=== PATIENT | female | born 1960 | race Caucasian/White ===

== ENCOUNTER 2018-05-01 14:46 | Outpatient (CLI) | payer BC ==
[2018-05-01] MEDS ORDERED: Lidocaine 2% Jelly 5 ML TUBE ONE (15:00)
--- NOTE | 2018-05-01 23:29 | HP ---
DATE OF SERVICE: 05/01/2018 HISTORY OF PRESENT ILLNESS: Ms. Yara Navarro is a very pleasant 58-year-old who presents to the [facility] for evaluation of coccygeal pressure ulceration. The patient states that the ulceration b bhavik in mid February of this year. The patient states that she was immobilized secondary to a lupus exacerbation. The patient states she has returned home after vacation at the end of January of this year. The patient states that her assisted her with dressing changes consisting of cleansing the wound and applying an antifungal preparation made from essential oils. The patient states that this preparation is made by a friend. She also states that she applied a preparation of lavender to the wound for relief of pain. The patient's states that the wound was also dressed with "a b ig Band-Aid." The patient states that she was seen by Dr. Holden last week and at this time referre d to the Wound Center for further evaluation and treatment. PAST MEDICAL HISTORY: Lupus. PAST SURGICAL HISTORY: [place] teeth extraction. MEDICATIONS: 1. Vitamin B12. 2. Probiotics. 3. Alpha lipoic acid. ALLERGIES: No known diagnosed allergies. SOCIAL HISTORY: Significant for tobacco use of 4 cigarettes per day for 8 years. The patient states she has not smoked in approximately 10 years. The patient denies any history of ETOH use. FAMILY HISTORY: Negative for diabetes mellitus or coronary artery disease. PHYSICAL EXAMINATION: VITAL SIGNS: Temperature 97.6, pulse 135, respirations 17, blood pressure 92/40. GENERAL: A 58-year-old female sitting on wheelchair in examination room, in mild distress. HEENT: Normocephalic, atraumatic. NECK: No nuchal rigidity. CHEST: Clear to auscultation. CARDIAC: Regular rate and rhythm. ABDOMEN: Soft. EXTREMITIES: No clubbing or cyanosis. BACK: Coccygeal pressure ulceration is present which measures approximately 1.0 x 2.0 cm. Granulati on tissue is visible within the wound margins. Nonviable tissue present within the wound margins was debrided with an excisional full-thickness debridement. No purulent drainage is associated with the wound. No cellulitis of the coccygeal region is appreciated. No maceration of the skin of the selina wound is noted. NEUROLOGIC: Grossly nonfocal. ASSESSMENT AND PLAN: 1. Coccygeal pressure ulceration as described above. Dressing changes of Medihoney gauze and Mepile x border will be initiated today. These dressing changes are to be performed on a daily basis or alt ernatively every other day after cleansing and irrigation with the assistance of the patient's marley baig. No antibiotics will be prescribed today based upon the appearance of the wound. I will see Ms. Christopher camp again in two weeks. The patient and her understand and are in agreement with the [facility] treatment plan. 2. Lupus.
== END 2018-05-01 14:47 | disposition home or self-care (01) ==
LOC: WCC 14:46
PROVIDERS: ATTEND Internal Medicine
DX: L89.159 Pressure ulcer of sacral region, unspecified stage (principal); M32.9 Systemic lupus erythematosus, unspecified

== ENCOUNTER 2018-05-22 15:16 | Outpatient (CLI) | payer BC ==
[~2018-05-22 15:16] MED LIST: Lidocaine 4% Topical Sol 50 ML BOT ONE; Sodium Chloride 0.9% 15 ML NEB ONE
--- NOTE | 2018-05-22 17:15 | PRG ---
DATE OF SERVICE: 05/22/2018 HISTORY: Ms. Yara Navarro is a very pleasant 58-year-old, who presents to the Wound Center for evaluation of a coccygeal pressure ulceration. Since the patient's last visit to the Wound Center, Ms. Navarro states she was admitted to [facility] where negative pressure therapy was initiated for her wound. The patient has been receiving dressing changes with the assistance of home health since her discharge from [facility]. The patient states that imaging of the pelvis has been obtained. She states that the records of her imaging have been transmitted to Dr. Holden. PHYSICAL EXAMINATION: VITAL SIGNS: Temperature 97.9, pulse 94, respirations 18, and blood pressure 110/55. BACK: A coccygeal pressure ulceration is present, which measures approximately 2.0 x 1.4 cm. The dimensions of the wound at the time of the patient's visit on 05/01/2018, were approximately 1.0 x 2.0 cm. Granulation tissue is visible within the wound margins. Nonviable tissue present within the wound margins was debrided with an excisional full-thickness debridement. No purulent drainage is associated with the wound. No cellulitis of the coccygeal region is appreciated. No maceration of the skin of the periwound is noted. ASSESSMENT AND PLAN: 1. Coccygeal pressure ulceration as described above. Negative pressure therapy will be continued with dressing changes of the wound VAC three times per week with the assistance of home health. I will see Ms. Navarro again in 2 weeks. 2. Lupus. Job ID: [id number]
== END 2018-05-22 15:17 | disposition home or self-care (01) ==
LOC: WCC 15:16
PROVIDERS: ATTEND Family Medicine
DX: L89.159 Pressure ulcer of sacral region, unspecified stage (principal); M32.9 Systemic lupus erythematosus, unspecified
CPT/HCPCS: A4218; J2001

== ENCOUNTER 2018-06-05 15:14 | Outpatient (CLI) | payer BC ==
--- NOTE | 2018-06-06 09:25 | PRG ---
DATE OF SERVICE: 06/06/2018 HISTORY: Ms. Yara Navarro is a very pleasant 58-year-old, who presents to the Wound Center for evaluation of a coccygeal pressure ulceration. The patient continues to receive negative pressure therapy with dressing changes of the wound VAC with the assistance of home health. The patient has no complaints today. She denies any fever or chills. OBJECTIVE: VITAL SIGNS: Temperature 98.4, pulse 116, respirations 20, blood pressure 112/63. BACK: A coccygeal pressure ulceration is present which measures approximately 1.2 x 1.0 cm. The dimensions of the wound at the time of the patient's visit on 05/22/2018, were approximately 2.0 x 1.4 cm. Granulation tissue is present within the wound margins. No purulent drainage is associated with the wound. No erythema of the skin surrounding the wound is present. No maceration of the skin of the periwound is noted. A tunnel at the 12 o'clock position is present and is approximately 3.4 cm in length. ASSESSMENT AND PLAN: 1. Coccygeal pressure ulceration as described above. Negative pressure therapy will be continued with dressing changes of the wound VAC 3 times per week with the assistance of home health. Arrangements will also be made for MRI of the pelvis with and without contrast to look for findings suggestive of osteomyelitis. I will see Ms. Navarro again after MRI of the pelvis with and without contrast has been obtained. The patient understands and is in agreement with the preceding treatment plan. 2. Lupus. Job ID: [id number]
== END 2018-06-05 15:15 | disposition home or self-care (01) ==
LOC: WCC 15:14
PROVIDERS: ATTEND Family Medicine
DX: L89.159 Pressure ulcer of sacral region, unspecified stage (principal); M32.9 Systemic lupus erythematosus, unspecified
CPT/HCPCS: A4218; J2001

== ENCOUNTER 2018-06-19 16:00 | Emergency (ER) | payer BC ==
--- NOTE | 2018-06-19 17:26 | RAD ---
UPRIGHT PORTABLE CHEST ONE VIEW: HISTORY: A 58-year-old female with a history of shortness of breath. COMPARISON: 03/02/2010 FINDINGS: Linear parenchymal changes horizontally noted over the right and left mid lung zones. Minimal increa sed markings bilaterally. Heart size is within normal limits. No confluent pneumonia, overt edema, or pleural effusion. IMPRESSION: Horizontal linear and parenchymal changes in the mid lung zones, possibly chronic change or subsegmen mariano atelectasis. Somewhat less than optimal inspiration. No confluent pneumonia or overt edema. Co ntinue short-term followup. POS: [facility]
[2018-06-19] MEDS ORDERED: Ondansetron PF 4 MG/2 ML Vial ONE (17:48)
[2018-06-19] MEDS ORDERED: Morphine 4 MG/ML VIAL ONE (17:48)
[2018-06-19 17:50] LABS: Hemoglobin 9.6 g/dL (12.0-16.0); Mean Corpuscular HGB CONC 32.8 g/dL (32.0-36.0); Mean Corpuscular Hemoglobin 32.5 pg (27.0-31.0); Mean Corpuscular Volume 99.3 fL (78.0-98.0); Mean Platelet Volume 10.6 fL (7.4-10.4); Platelet Count 131 thou/uL (130-400); RBC Distribution Width 14.6 % (11.5-14.5); Red Blood Cell (RBC) Count 2.95 mill/uL (4.20-5.40); White Blood Cell (WBC) Count 4.1 thou/uL (4.8-10.8)
[2018-06-19 18:04] LABS: ALT (SGPT) 18 U/L (8-55); AST (SGOT) 40 U/L (5-34); Albumin 2.8 g/dL (3.5-5.0); Alkaline Phosphatase 67 U/L (40-150); Anion Gap 14 mmol/L (10-20); BUN (Urea Nitrogen) 17 mg/dL (9.8-20.1); Bilirubin, Total 0.4 mg/dL (0.2-1.2); Calc. Creatinine Clearance 0 mL/min (70-130); Calcium 8.4 mg/dL (7.8-10.44); Carbon Dioxide 22 mmol/L (22-29); Chloride 101 mmol/L (98-107); Estimated GFR-MDRD 82; Glucose 85 mg/dL (70-105); Lipase 11 U/L (8-78); Potassium 4.2 mmol/L (3.5-5.1); Protein, Total 6.8 g/dL (6.0-8.3); Sodium 133 mmol/L (136-145)
[2018-06-19 18:16] LABS: Anisocytosis SLIGHT = 6-15 cells (100X) (0-5/hpf); Band 8 % (5-11); Lymphocytes 12 % (21-51); MDiff Complete? YES; Monocytes 3 % (0-10); Neutrophil 76 % (42-75); Ovalocytes SLIGHT = 2-5 cells (100X) (0-1/hpf); PLT Morphology Comment Appears Adequate; Polychromasia SLIGHT = 2-3 cells (100X) (0-2/hpf); Tear Drops SLIGHT = 2-5 cells (100X) (0-1/hpf)
--- NOTE | 2018-06-19 18:26 | CT ---
CT ABDOMEN AND PELVIS WITH IV CONTRAST: 06/19/2018 HISTORY: Right lower quadrant abdominal pain. COMPARISON: None available. FINDINGS: There is bibasilar atelectasis, greater at the right lung base. There is mild elevation of the right hemidiaphragm. The heart is mildly enlarged. Mild vascular calcifications are seen in the abdominal aorta, but the abdominal aorta is normal in ca liber. There is minimal nonspecific periportal edema. A 3.1 cm hypodense mass is seen at the posterior aspe ct, posterior segment, right hepatic lobe, with discontinuous peripheral nodular enhancement, and thi s likely represents a hemangioma. The liver is enlarged in craniocaudal dimensions, measuring 19.3 c m. The spleen, pancreas, bilateral adrenal glands, kidneys, and urinary bladder demonstrate a normal CT appearance. The uterus is small in size. There are several mildly enlarged lymph nodes in the renetta hepatis, with the largest lymph node seen just anterior to the IVC, at the level of the pancreatic head, measuring 1.2 cm in short axis dimensi on. A few additional aortocaval lymph nodes are seen, which are mildly increased in number. There is a tubular area of gas density in the right lower quadrant, which is thought to be the append ix, which is normal in caliber, without CT findings to suggest appendicitis. There are a few gas densities seen within the central mesentery and just to the left of midline, in t he upper pelvis, which are thought to be related to gas densities within loops of bowel. No free fluid or fluid collection is seen in the abdomen or pelvis. IMPRESSION: 1. Lymphadenopathy, predominantly in a periportal location, but also in an aortocaval location, of u ncertain etiology. Lymphoma cannot be entirely excluded. 2. Probable hemangioma, posterior segment, right hepatic lobe. There is mild nonspecific heterogene ity of the liver, which may be related to areas of fatty infiltration. The liver is enlarged in cran iocaudal dimensions, measuring 19.[address] evidence of appendicitis. 4. Prominent bibasilar atelectasis with a very tiny right pleural effusion. POS: [facility]
[2018-06-19] MEDS ORDERED: Morphine 10 MG/ML VIAL ONE (20:45)
[2018-06-19] MEDS ORDERED: Acetaminophen 325 MG TAB ONE (20:46)
[2018-06-19] MEDS ORDERED: metroNIDAZOLE 250 MG TAB ONE (20:46)
[2018-06-19 20:48] LABS: Bilirubin Negative (Negative); Blood, Urine Negative (Negative); Clarity CLEAR (Clear); Glucose, Urine (Dipstick) Negative (Negative); Leukocyte Negative (Negative); Nitrite Negative (Negative); Protein, Urine (Dipstick) Negative (Neg-Trace); Specific Gravity, Urine 1.025 (1.002-1.036); Urobilinogen 0.2 mg/dL (0.2-1.0)
[2018-06-19] MEDS ORDERED: Doxycycline 100 MG CAP PO SCH (21:00)
== END 2018-06-19 21:30 | disposition home or self-care (01) ==
LOC: ERS 16:00
DX: I88.0 Nonspecific mesenteric lymphadenitis (principal)
CPT/HCPCS: 36415; 71045; 74177; 80053; 81003; 83605; 83690; 85025; 87040; 96361; 96374; 96375; 96376; J2270; J2405

== ENCOUNTER 2018-06-21 09:02 | Outpatient (CLI) | payer BC ==
[~2018-06-21 09:02] MED LIST changes: +Gadobenate Dimeglumine 529 MG/1 ML (20ML VIAL) ONE; -Lidocaine 4% Topical Sol 50 ML BOT ONE; -Sodium Chloride 0.9% 15 ML NEB ONE
--- NOTE | 2018-06-21 13:57 | MRI ---
MRI PELVIS WITH AND WITHOUT CONTRAST: HISTORY: Pain. Decubitus ulcer. COMPARISON: CT from 06/19/2018. FINDINGS: BONES: There is extensive red marrow hyperplasia. The sacrum and coccyx are without loss of normal T1 marrow signal. There is a large wound along the sacrococcygeal joint soft tissues, which nearly a buts the cortex of the S5 and the coccyx, although the cortex itself is intact. No abnormal hyperenh ancement. INTRAPELVIC SOFT TISSUES: There is moderate volume intrapelvic free fluid. There are abnormal super ficial inguinal lymph nodes bilaterally. MUSCLES: There is a focal area of abnormal increased T2 signal and peripheral enhancement in the lef t gluteus josé miguel muscle, posterior to the ischium, as well as the proximal femoral diaphysis. There is a peripheral enhancing collection, measuring 2.1 x 1.2 x 3.8 cm, within the muscle, concerning fo r pyomyositis. IMPRESSION: 1. No evidence of osteomyelitis. 2. Findings suggestive of pyomyositis of the left gluteus josé miguel muscle, at the level of the ischiu m, with a peripherally enhancing intramuscular collection, as well as asymmetric edema and enlargemen t of the left gluteus josé miguel muscle, relative to the right. 3. Increasing free fluid in the pelvis. 4. Abnormal bilateral superficial inguinal lymph nodes, concerning for underlying lymphoproliferativ e disorder. POS: [facility]
== END 2018-06-21 09:03 | disposition home or self-care (01) ==
LOC: SCSMRI 09:02
PROVIDERS: ATTEND Family Medicine
DX: L89.90 Pressure ulcer of unspecified site, unspecified stage (principal)
CPT/HCPCS: 72197; A9579

== ENCOUNTER 2018-06-26 16:01 | Outpatient (CLI) | payer BC ==
[~2018-06-26 16:01] MED LIST changes: -Gadobenate Dimeglumine 529 MG/1 ML (20ML VIAL) ONE; +Lidocaine 2% PF 100 mg/5 ml Syringe ONE; +Lidocaine 4% Topical Sol 50 ML BOT ONE; +Sodium Chloride 0.9% 15 ML NEB ONE
--- NOTE | 2018-06-26 17:33 | PRG ---
DATE OF SERVICE: 06/26/2018 HISTORY: Ms. Yara Navarro is a very pleasant 58-year-old, who presents to the Wound Center for evaluation of a coccygeal pressure ulceration. The patient is still receiving negative pressure therapy with dressing changes of the wound VAC with the assistance of Home Health. MRI of the pelvis was obtained on 06/21/2018, which showed no evidence of osteomyelitis, but findings suggestive of pyomyositis of the left gluteus josé miguel muscle were however noted. Ms. Navarro has no complaints today. She denies any fever or chills. PHYSICAL EXAMINATION: VITAL SIGNS: Temperature 98.9, pulse 116, respirations 22, and blood pressure 117/55. BACK: A coccygeal pressure ulceration is present, which measures approximately 1.0 x 1.5 cm. Granulation tissue is present within the wound margins. No purulent drainage was associated with the wound. No maceration of the skin of the periwound was noted. Undermining at the 12 o'clock position is present and is approximately 3 cm in length. Undermining at the 9 o'clock position is present and is approximately 3 cm in length. ASSESSMENT AND PLAN: 1. Coccygeal pressure ulceration as described above. Negative pressure therapy will be discontinued. Dressing changes of Hydrofera Blue and Mepilex border will be initiated today. These dressing changes are to be performed 3 times per week after cleansing and irrigation with the assistance of Home Health. Arrangements will be made for evaluation by Infectious Diseases in view of the findings noted on MRI of the pelvis with and without contrast. I will see Ms. Navarro again after she has been seen in consultation by Dr. Gio Richardson of Infectious Diseases. The patient understands and is in agreement with the preceding treatment plan. 2. Lupus. Job ID: [id number]
== END 2018-06-26 16:02 | disposition home or self-care (01) ==
LOC: WCC 16:01
PROVIDERS: ATTEND Family Medicine
DX: L89.519 Pressure ulcer of right ankle, unspecified stage (principal); M32.9 Systemic lupus erythematosus, unspecified
CPT/HCPCS: 97602; A4218; J2001

== ENCOUNTER 2018-07-19 15:20 | Outpatient (CLI) | payer BC ==
[~2018-07-19 15:20] MED LIST changes: -Lidocaine 4% Topical Sol 50 ML BOT ONE
--- NOTE | 2018-07-19 17:30 | PRG ---
DATE OF SERVICE: 07/19/2018 HISTORY: Ms. Yara Navarro is a very pleasant 58-year-old, who presents to the Wound Center for evaluation of a coccygeal pressure ulceration. The patient is receiving dressing changes of Hydrofera Blue and Mepilex Border 3 times per week after cleansing and irrigation with the assistance of Home Health. MRI of the pelvis was obtained on 06/21/2018, which showed no evidence of osteomyelitis, but findings suggestive of pyomyositis of the left gluteus josé miguel muscle were noted. The patient has been seen in consultation by Dr. Gio Richardson of Infectious Diseases and the patient states that an ultrasound may be obtained in the near future. The patient has no complaints today. She denies any fever or chills. OBJECTIVE: VITAL SIGNS: Temperature 99.2, pulse 127, respirations 22, blood pressure 102/54. BACK: A coccygeal pressure ulceration is present, which measures approximately 1.9 x 1.0 cm. The dimensions of the wound at the time of the patient's visit on 06/26/2018 were approximately 1.0 x 1.5 cm. Granulation tissue is present within the wound margins albeit of poor quality. No purulent drainage is associated with the wound. No maceration of the skin of the periwound is noted. Undermining at the 12 o'clock position is present and is approximately 3.9 cm in length. Undermining at the 10 o'clock position is present and is approximately 2.5 cm in length. ASSESSMENT AND PLAN: 1. Coccygeal pressure ulceration, as described above. Dressing changes of Hydrofera Blue and Mepilex border will be continued 3 times per week after cleansing and irrigation with the assistance of Home Health. The patient has been seen in consultation by Dr. Gio Richardson of Infectious Diseases in view of the findings noted on MRI of the pelvis with and without contrast. The patient states she was given a prescription for a Roho cushion by Dr. Richardson. I have given the patient a prescription for a low air loss mattress or air fluidized bed. I have also discussed the importance of nutrition in achieving the healing of the ulceration with Ms. Navarro and her . I will also discuss the treatment plan with Dr. Holden and Dr. Richardson. I will see Ms. Navarro again after workup and any necessary treatment by Dr. Richardson is complete. 2. Lupus. Job ID: [id number]
== END 2018-07-19 15:21 | disposition home or self-care (01) ==
LOC: WCC 15:20
PROVIDERS: ATTEND Family Medicine
DX: L89.159 Pressure ulcer of sacral region, unspecified stage (principal); L93.0 Discoid lupus erythematosus

== ENCOUNTER 2018-07-28 09:17 | Outpatient (CLI) | payer BC ==
--- NOTE | 2018-07-28 11:53 | ULT ---
SOFT TISSUE SONOGRAM LEFT GLUTEUS: HISTORY: FINDINGS: Pain and inflammation. Possible abscess. FINDINGS: Originally, aspiration of abscess was planned, if needed. Extensive sonographic evaluation of the left gluteal tissues was performed. There was some edematous stranding in the subcutaneous fat. No fluid collections were visible. The right gluteal tissues we re also evaluated, as the patient and family described some discomfort on the right. IMPRESSION: No sonographic evidence of abscess or other fluid collection in the gluteal tissues. POS: [facility]
== END 2018-07-28 09:18 | disposition home or self-care (01) ==
LOC: ULT 09:17
PROVIDERS: ATTEND Internal Medicine Infectious Disease
DX: L02.31 Cutaneous abscess of buttock (principal)
CPT/HCPCS: 76705

== ENCOUNTER 2018-08-09 15:02 | Outpatient (CLI) | payer BC ==
--- NOTE | 2018-08-09 16:38 | PRG ---
DATE OF SERVICE: 08/09/2018 HISTORY: Ms. Yara Navarro is a very pleasant 58-year-old, who presents to the wound center for evaluation of a coccygeal pressure ulceration. The patient is receiving dressing changes of Hydrofera Blue and Mepilex border 3 times per week after cleansing and irrigation with the assistance of Home Health. MRI of the pelvis was obtained on 06/21/2018, which showed no evidence of osteomyelitis, but findings suggestive of pyomyositis of the left gluteus josé miguel muscle were noted. The patient has been seen in consultation by Dr. Gio Richardson of Infectious Diseases, and imaging with aspiration was scheduled for workup of the findings noted on MRI. Apparently, according to the patient and her , when the abnormal findings on imaging were no longer visible, aspiration was canceled. The patient states that she has a followup appointment with Dr. Holden later today. The patient denies any fever or chills. OBJECTIVE: VITAL SIGNS: Temperature 98.0, pulse 130, and blood pressure 125/58. BACK: A coccygeal pressure ulceration is present which measures approximately 1.9 x 1.6 cm. The dimensions of the wound at the time of the patient's visit on 07/19/2018 were approximately 1.9 x 1.0 cm. Granulation tissue is present within the wound margins, albeit of poor quality. No purulent drainage is associated with the wound. No maceration of the skin of the periwound is noted. Undermining at the 12 o'clock position is approximately 3 cm in length. Undermining at the 10 o'clock position at the time of the patient's last visit was approximately 2.5 cm in length. Undermining at the 1 o'clock position on today's exam is approximately 4.2 cm in length. ASSESSMENT AND PLAN: 1. Coccygeal pressure ulceration as described above. Dressing changes of Hydrofera Blue and Mepilex border will be continued 3 times per week after cleansing and irrigation with the assistance of Home Health. The patient was given a prescription for a Roho cushion by Dr. Richardson. At the time of the patient's last visit to the wound center, Ms. Navarro was given a prescription for a low air loss mattress or air-fluidized bed. The patient states she has an appointment with Nutrition at [facility] next week. As stated above, the patient will also see Dr. Holden later today to include treatment for nutritional deficiencies, specifically zinc and vitamin A. I have discussed the treatment plans with both Dr. Holden and Dr. Richardson and conveyed their recommendations to Ms. Navarro. 2. Lupus. The patient is now taking Plaquenil. Job ID: [id number]
[2018-08-09] MEDS ORDERED: Sodium Chloride 0.9% 15 ML NEB ONE (18:00)
[2018-08-09] MEDS ORDERED: Lidocaine 2% 11 ML SYR ONE (18:00)
== END 2018-08-09 15:03 | disposition home or self-care (01) ==
LOC: WCC 15:02
PROVIDERS: ATTEND Family Medicine
DX: L89.159 Pressure ulcer of sacral region, unspecified stage (principal); M32.9 Systemic lupus erythematosus, unspecified
CPT/HCPCS: A4218

== ENCOUNTER → 2018-08-16 | Day surgery (SDC) | payer BC ==
[~2018-08-16] MED LIST changes: +Heparin 1,000 UNITS/ML VIAL ONE; -Lidocaine 2% PF 100 mg/5 ml Syringe ONE; -Sodium Chloride 0.9% 15 ML NEB ONE
--- NOTE | 2018-08-16 10:59 | SPC ---
ULTRASOUND GUIDED LEFT UPPER EXTREMITY PICC LINE PLACEMENT: Date: 08-16-18 History: Systemic lupus erythematosus. Patient needs perennial nutrition. Fluoroscopy: Total time 0 minutes, total dose 134 mGy*cm^2. Technique: After informed consent was obtained, the patient was placed in the angiography table in the supine po sition. The left upper extremity was meticulously prepped and draped in the usual sterile fashion. An appropriate access site was determined with ultrasound guidance. Skin and subcutaneous tissues were infiltrated with buffered 1% Lidocaine for local anesthesia at the intended puncture site. Utilizing concurrent real-time ultrasound guidance, the left brachial vein was accessed utilizing volodymyr ropuncture technique and a 5 German peel-away sheath was placed. Catheter was measured and cut to the appropriate length. Catheter was placed over the guidewire with tip positioned overlying the distal SVC. Each port of the double lumen PICC Line was accessed and aspirated/flushed easily. Catheter was secured in place utilizing dry sterile dressing. The patient tolerated the procedure well and without immediate complications. FINDINGS: Technically successful placement of a dual-lumen 5 German 40 cm PICC line via the left brachial vein. Tip of the catheter overlies the distal SVC. IMPRESSION: Technically successful left upper extremity PICC line placement. POS: [facility]
== END ==
LOC: SPEC 08:10
PROVIDERS: ATTEND Internal Medicine
PROC: B548ZZA Ultrasonography of Superior Vena Cava, Guidance (ICD-10-PCS; principal; 2018-08-16)
PROC: 02HV33Z Insertion of Infusion Device into Superior Vena Cava, Percutaneous Approach (ICD-10-PCS; principal; 2018-08-16)
DX: M32.9 Systemic lupus erythematosus, unspecified (principal)
CPT/HCPCS: 36569

== ENCOUNTER 2018-08-18 10:16 | Day surgery (SDC) | payer BC ==
[2018-08-18] MEDS ORDERED: diphenhydrAMINE 12.5 MG/5 ML UDCUP PO SCH ×2 (10:45→14:30)
[2018-08-18] MEDS ORDERED: Acetaminophen 325 MG TAB PO SCH ×2 (10:45→14:30)
[2018-08-18] MEDS ORDERED: [UNRECOGNIZED DRUG - REMARK] PO SCH (11:30)
[2018-08-18 17:15] VITALS: BP 118/78; TEMP 98.2
== END 2018-08-18 17:42 | disposition home or self-care (01) ==
LOC: ONC/OP 10:16 → ONC 10:18 → ONC/OP 17:42
PROVIDERS: ATTEND Internal Medicine
PROC: 30233N1 Transfusion of Nonautologous Red Blood Cells into Peripheral Vein, Percutaneous Approach (ICD-10-PCS; principal; 2018-08-18)
DX: D64.9 Anemia, unspecified (principal)
CPT/HCPCS: 36415; 36430; 86850; 86900; 86901; J1642; P9016; Q0163

== ENCOUNTER 2018-09-13 14:01 | Outpatient (CLI) | payer BC ==
[~2018-09-13 14:01] MED LIST changes: -Heparin 1,000 UNITS/ML VIAL ONE; +Lidocaine 2% PF 100 mg/5 ml Syringe ONE; +Sodium Chloride 0.9% 15 ML NEB ONE
--- NOTE | 2018-09-13 15:17 | PRG ---
DATE OF SERVICE: 09/13/2018 HISTORY: Ms. Yara Navarro is a very pleasant 58-year-old, who presents to the Wound Center for evaluation of a coccygeal pressure ulceration. The patient is receiving dressing changes of Hydrofera Blue and Mepilex border 3 times per week after cleansing and irrigation with the assistance of Home Health. Since the patient's visit on 08/09/2018, the patient has undergone PICC line insertion in addition to the administration of TPN, the patient is also taking Plaquenil as per Rheumatology. Ms. Navarro has no complaints today. She denies any fever or chills. PHYSICAL EXAMINATION: VITAL SIGNS: Temperature 97.9, pulse 110, and blood pressure 109/59. BACK: A coccygeal pressure ulceration is present, which measures approximately 1.2 x 1.2 cm. The dimensions of the wound at the time of the patient's visit on 08/09/2018, were approximately 1.9 x 1.6 cm. Granulation tissue is present within the wound margins and of better quality than that noted at the time of the patient's visit on 08/09/2018. No purulent drainage was associated with the wound. No maceration of the skin of the periwound was noted. Undermining at the 12 o'clock position is approximately 3.5 cm in length. ASSESSMENT AND PLAN: 1. Coccygeal pressure ulceration as described above. Dressing changes of Hydrofera Blue and Mepilex border will be continued 3 times per week after cleansing and irrigation with the assistance of Home Health. I will see Ms. Navarro again in 2 to 4 weeks. 2. Lupus. The patient is taking Plaquenil. Job ID: [id number]
== END 2018-09-13 14:02 | disposition home or self-care (01) ==
LOC: WCC 14:01
PROVIDERS: ATTEND Family Medicine
DX: L89.159 Pressure ulcer of sacral region, unspecified stage (principal); M32.9 Systemic lupus erythematosus, unspecified
CPT/HCPCS: 97602; A4218; J2001

== ENCOUNTER 2018-10-04 13:29 | Outpatient (CLI) | payer BC ==
--- NOTE | 2018-10-04 14:16 | PRG ---
DATE OF SERVICE: 10/04/2018 HISTORY: Ms. Yara Navarro is a very pleasant 58-year-old, who presents to the Wound Center for evaluation of a coccygeal pressure ulceration. The patient has been receiving dressing changes of Hydrofera Blue and Mepilex border 3 times per week after cleansing and irrigation with the assistance of Home Health. The patient reports that she has gained weight. She states that she now weighs 103 pounds. At the time of the patient's last visit, Ms. Navarro stated that she had been taking Plaquenil as per Rheumatology. The patient has no complaints today. She denies any fever or chills. OBJECTIVE: VITAL SIGNS: Temperature 97.8, pulse 107, respirations 17, and blood pressure 111/57. BACK: A coccygeal pressure ulceration is present, which measures approximately 1.2 x 1.2 cm. The dimensions of the wound at the time of the patient's visit on 09/13/2018, were also approximately 1.2 x 1.2 cm. Granulation tissue is present within the wound margins. No purulent drainage is associated with the wound. No erythema of the skin surrounding the wound is present. No maceration of the skin of the periwound is noted. Undermining at the 12 o'clock position is approximately 4 cm in length. ASSESSMENT AND PLAN: 1. Coccygeal pressure ulceration as described above. Dressing changes of Hydrofera Blue and Mepilex border will be continued 3 times per week after cleansing and irrigation with the assistance of Home Health. Orders will be transmitted to Home Health for the tunnel to be packed in its entirety with Hydrofera Blue. I will see Ms. Navarro again in 3 weeks. 2. Lupus. Job ID: [id number]
[2018-10-04] MEDS ORDERED: Sodium Chloride 0.9% 15 ML NEB ONE (17:16)
== END 2018-10-04 13:30 | disposition home or self-care (01) ==
LOC: WCC 13:29
PROVIDERS: ATTEND Family Medicine
DX: L89.159 Pressure ulcer of sacral region, unspecified stage (principal); M32.9 Systemic lupus erythematosus, unspecified
CPT/HCPCS: 97602; A4218

== ENCOUNTER 2018-10-30 14:58 | Outpatient (CLI) | payer BC ==
--- NOTE | 2018-10-30 15:12 | PRG ---
DATE OF SERVICE: 10/30/2018 HISTORY: Ms. Yara Navarro is a very pleasant 58-year-old accompanied by her spouse, who presents to the [facility] for evaluation of a coccygeal pressure ulceration. The patient has been receiving dressing changes of Hydrofera Blue and Mepilex border 3 times per week after cleansing and irrigation with the assistance of Home Health. Again, the patient reports that she has gained weight. She states that she now weighs 106 pounds. The patient has no complaints today. She denies any fever or chills. PHYSICAL EXAMINATION: VITAL SIGNS: Temperature 98, pulse 107, respirations 18, blood pressure 119/74. BACK: A coccygeal pressure ulceration is present, which measures approximately 0.8 x 0.8 cm. The dimensions of the wound at the time of the patient's visit on 10/04/2018 were approximately 1.2 x 1.2 cm. Granulation tissue is present within the wound margins. No purulent drainage is associated with the wound. No erythema of the skin surrounding the wound is present. No maceration of the skin of the periwound is noted. Undermining at the 12 o'clock position is approximately 3.5 cm in length. Undermining at the 12 o'clock position at the time of the patient's visit on 10/04/2018 was approximately 4 cm in length. ASSESSMENT AND PLAN: 1. Coccygeal pressure ulceration as described above. Dressing changes of Hydrofera Blue and Mepilex border will be continued on a daily basis or alternatively 3 times per week after cleansing and irrigation with the assistance of Home Health and the patient's spouse. I will see Ms. Navarro again in 3 weeks. 2. Lupus. Job ID: [id number]
[2018-10-30] MEDS ORDERED: Lidocaine 2% 11 ML SYR ONE (18:00)
[2018-10-30] MEDS ORDERED: Sodium Chloride 0.9% 15 ML NEB ONE (18:00)
== END 2018-10-30 14:59 | disposition home or self-care (01) ==
LOC: WCC 14:58
PROVIDERS: ATTEND Family Medicine
DX: L89.159 Pressure ulcer of sacral region, unspecified stage (principal); M32.9 Systemic lupus erythematosus, unspecified
CPT/HCPCS: A4218

== ENCOUNTER 2018-11-20 14:48 | Outpatient (CLI) | payer BC ==
[~2018-11-20 14:48] MED LIST changes: -Lidocaine 2% PF 100 mg/5 ml Syringe ONE
--- NOTE | 2018-11-20 16:40 | PRG ---
DATE OF SERVICE: 11/20/2018 HISTORY: Ms. Yara Navarro is a very pleasant 58-year-old accompanied by her spouse, who presents to the wound center for evaluation of a coccygeal pressure ulceration. The patient has been receiving dressing changes of Hydrofera Blue and Mepilex border for her ulceration. Again, the patient reports that she has gained weight. Ms. Navarro has no other complaints today. She denies any fever or chills. PHYSICAL EXAMINATION: VITAL SIGNS: Temperature 97.7, pulse 109, respirations 16, and blood pressure 126/74. BACK: A coccygeal pressure ulceration is present, which measures approximately 0.4 x 0.7 cm. The dimensions of the wound at the time of the patient's visit on 10/30/2018 were approximately 0.8 x 0.8 cm. Granulation tissue is present within the wound margins. No purulent drainage is associated with the wound. No erythema of the skin surrounding the wound is present. No maceration of the skin of the periwound is noted. Undermining at the 12 o'clock position is approximately 4 cm in length. ASSESSMENT AND PLAN: 1. Coccygeal pressure ulceration as described above. Dressing changes of Hydrofera Blue and Mepilex border will be continued. Promogran will be added to the patient's regimen. I will see Ms. Navarro again in 3 weeks. 2. Lupus. Job ID: [id number]
== END 2018-11-20 14:49 | disposition home or self-care (01) ==
LOC: WCC 14:48
PROVIDERS: ATTEND Family Medicine
DX: L89.159 Pressure ulcer of sacral region, unspecified stage (principal); M32.9 Systemic lupus erythematosus, unspecified
CPT/HCPCS: A4218

== ENCOUNTER 2018-12-18 14:55 | Outpatient (CLI) | payer BC ==
--- NOTE | 2018-12-18 16:05 | PRG ---
DATE OF SERVICE: 12/18/2018 HISTORY: Ms. Yara Navarro is a very pleasant 58-year-old, accompanied by her spouse, who presents to the [facility]ound Center for evaluation of a coccygeal pressure ulceration. The patient has been receiving dressing changes of Promogran followed by Hydrofera Blue and Mepilex border for her ulceration. The patient has no other complaints today. She denies any fever or chills. The patient's has been performing all of the patient's dressing changes. OBJECTIVE: VITAL SIGNS: Temperature 97.7, pulse 90, respirations 16, blood pressure 124/66. BACK: A coccygeal pressure ulceration is present, which measures approximately 0.4 x 0.3 cm. The dimensions of the wound at the time of the patient's visit on 11/20/2018 were approximately 0.4 x 0.7 cm. Granulation tissue is present within the wound margins. No purulent drainage is associated with the wound. No erythema of the skin surrounding the wound is present. No maceration of the skin of the periwound is noted. A tunnel at the 12 o'clock position is approximately 2.9 cm in length. ASSESSMENT AND PLAN: 1. Coccygeal pressure ulceration as described above. Dressing changes of Promogran followed by Hydrofera Blue and Mepilex border will be continued. I will see Ms. Navarro again in 3 weeks. 2. Lupus. Job ID: [id number]
[2018-12-18] MEDS ORDERED: Sodium Chloride 0.9% 15 ML NEB ONE (18:00)
== END 2018-12-18 14:56 | disposition home or self-care (01) ==
LOC: WCC 14:55
PROVIDERS: ATTEND Family Medicine
DX: L89.159 Pressure ulcer of sacral region, unspecified stage (principal); M32.9 Systemic lupus erythematosus, unspecified
CPT/HCPCS: A4218

== ENCOUNTER 2019-01-04 13:38 | Outpatient (CLI) | payer BC ==
--- NOTE | 2019-01-04 15:05 | PRG ---
DATE OF SERVICE: 01/04/2019 HISTORY: Ms. Yara Navarro is a very pleasant 58-year-old accompanied by her spouse, who presents to the Wound Center for evaluation of a coccygeal pressure ulceration. The patient has been receiving dressing changes of Promogran followed by Hydrofera Blue and Mepilex border for her ulceration. The patient has no other complaints today. She denies any fever or chills. The patient's has been performing all of the patient's dressing changes. Mr. Navarro states that he has not been able to dress the wound with Hydrofera Blue because of a decrease in the length of the tunnel associated with the wound. PHYSICAL EXAMINATION: VITAL SIGNS: Temperature 98.1, pulse 73, respirations 18, and blood pressure 119/66. BACK: A coccygeal pressure ulceration is present, which measures approximately 0.2 x 0.5 cm. The dimensions of the wound at the time of the patient's visit on 12/18/2018 were approximately 0.4 x 0.3 cm. Granulation tissue is present within the wound margins. No purulent drainage is associated with the wound. No erythema of the skin surrounding the wound is present. No maceration of the skin of the periwound is noted. A tunnel at the 12 o'clock position is approximately 0.9 cm in length. The length of the tunnel at the time of the patient's visit on 12/18/2018 was approximately 2.9 cm. ASSESSMENT AND PLAN: 1. Coccygeal pressure ulceration as described above. Dressing changes of Promogran and Mepilex border will be continued on a daily basis after cleansing and irrigation. The patient's will continue to assist Ms. Navarro with her dressing changes. I will see Ms. Navarro again in 2 to 3 weeks. Hydrofera Blue at the time of dressing changes will be discontinued. 2. Lupus. Job ID: [id number]
== END 2019-01-04 13:39 | disposition home or self-care (01) ==
LOC: WCC 13:38
PROVIDERS: ATTEND Family Medicine
DX: L89.159 Pressure ulcer of sacral region, unspecified stage (principal); M32.9 Systemic lupus erythematosus, unspecified

== ENCOUNTER 2019-01-22 14:25 | Outpatient (CLI) | payer BC ==
[2019-01-22] MEDS ORDERED: Sodium Chloride 0.9% 15 ML NEB ONE (15:00)
--- NOTE | 2019-01-22 16:48 | PRG ---
DATE OF SERVICE: 01/22/2019 HISTORY: Ms. Yara Navarro is a very pleasant 58-year-old accompanied by her spouse, who presents to the Wound Center for evaluation of a coccygeal pressure ulceration. The patient has been receiving dressing changes of Promogran and Mepilex border on a daily basis after cleansing and irrigation with the assistance of her . The patient has no other complaints today. She denies any fever or chills. PHYSICAL EXAMINATION: VITAL SIGNS: Temperature 97.6, pulse 75, respirations 12, blood pressure 128/61. BACK: The coccygeal pressure ulceration has healed completely. ASSESSMENT AND PLAN: 1. Coccygeal pressure ulceration as described above. As stated above, the wound has completely healed. Dressing changes will be discontinued, and Ms. Navarro will be discharged from clinic today with followup on a p.r.n. basis. 2. Lupus. Job ID: [id number]
== END 2019-01-22 14:26 | disposition home or self-care (01) ==
LOC: WCC 14:25
PROVIDERS: ATTEND Family Medicine
DX: Z87.2 Personal history of diseases of the skin and subcutaneous tissue (principal); M32.9 Systemic lupus erythematosus, unspecified
CPT/HCPCS: A4218

== ENCOUNTER 2019-02-14 14:34 | Outpatient (CLI) | payer BC ==
--- NOTE | 2019-02-14 15:22 | RAD ---
LEFT RIBS 3 VIEWS: Date: 02/14/19 HISTORY: Chest pain. Chondrocostal syndrome. FINDINGS: The left ribs appear intact. No fracture or rib lesion identified. IMPRESSION: Unremarkable left ribs. POS: [facility]
--- NOTE | 2019-02-14 15:23 | RAD ---
TWO VIEW CHEST: 02/14/19 HISTORY: Chest pain. Linear stranding in the left mid lung. This suggests chronic stranding or atelectasis and was present on prior exam of 06/19/18. There is stranding in the right lung base which appears chronic. No evide nce of inflammatory infiltrate or effusion. Heart size upper normal and stable. IMPRESSION: Parenchymal standing bilaterally, appears chronic. POS: [facility]
== END 2019-02-14 14:35 | disposition home or self-care (01) ==
LOC: BICRAD 14:34
PROVIDERS: ATTEND Internal Medicine
DX: M94.0 Chondrocostal junction syndrome [Tietze] (principal); R07.9 Chest pain, unspecified
CPT/HCPCS: 71046

== ENCOUNTER 2020-07-23 14:05 | Outpatient (CLI) | payer BC ==
--- NOTE | 2020-07-23 14:47 | RAD ---
PA AND LATERAL CHEST: HISTORY: Dyspnea. COMPARISON: 02/14/2019 study. FINDINGS: Heart size is within normal limits. There is linear scarring in the lingula and right lung base. No focal infiltrative process. No significant bony findings. IMPRESSION: Minimal linear scarring in both lung bases. Changes appear improved as compared to the previous stud y. POS: [facility]
== END 2020-07-23 14:06 | disposition home or self-care (01) ==
LOC: BICRAD 14:05
PROVIDERS: ATTEND Internal Medicine Critical Care Medicine
DX: R06.00 Dyspnea, unspecified (principal); J98.4 Other disorders of lung
CPT/HCPCS: 71046